=== PATIENT | female | born 1935 | race Caucasian/White ===

== ENCOUNTER 2020-01-24 09:54 | Emergency (ER) | payer MEDICARE, BC ==
[2020-01-24] MEDS ORDERED: Cefepime 2 GM in Premix Bag 1 BAG IV ONE (10:11)
[2020-01-24] MEDS ORDERED: Sodium Chloride 0.9% 1,000 ML IV ONE ×3 (10:11→11:09)
[2020-01-24] MEDS ORDERED: EPINEPHrine 1 MG/ML SDV ONE (10:20)
--- NOTE | 2020-01-24 10:46 | CR ---
Chest: Portable view of the chest was obtained. Comparison: No previous chest x-ray. Small left-sided pleural effusion is seen with hazy left lower lung density. Right lung and left upper lung are clear. Bony structures are grossly intact. Impression: 1. Small left-sided pleural effusion with hazy parenchymal density within the left lung base either due to atelectasis or minimal area of pneumonia. 2. No other acute finding is appreciated. Diagnostic code #2 This report was dictated in MDT
[2020-01-24] MEDS ORDERED: Sodium Chloride 0.9% 500 ML IV ONE (11:06)
[2020-01-24 11:08] LABS: BLOOD UREA NITROGEN,BUN 47 mg/dL (7.0-18.0); CARBON DIOXIDE,CO2 24.4 mmol/L (21.0-32.0); CHLORIDE,CL 100 mmol/L (98-107); GLUCOSE RANDOM 172 mg/dL (74-106); LIPASE 120 U/L (73-393); POTASSIUM,K 3.7 mmol/L (3.5-5.1); SODIUM,NA 138 mmol/L (136-145)
[2020-01-24] MEDS ORDERED: Aspirin 81 MG Tab.Chew PO ONE (11:12)
[2020-01-24] MEDS ORDERED: Etomidate 2 MG/ML 20 ML SDV IVPUSH ONE (11:17)
[2020-01-24] MEDS ORDERED: Amiodarone 150 MG in Dextrose 5% in Water 100 ML IV ONE ×2 (11:27)
[2020-01-24] MEDS ORDERED: Potassium Chloride Riders 20 MEQ in Premix Bag 1 BAG IV ONE ×2 (11:36→11:42)
[2020-01-24] MEDS ORDERED: Magnesium Sulfate (4.06 MEQ/ML) 5 GM/10 ML SDV IV STA (11:37)
[2020-01-24] MEDS ORDERED: Amiodarone In Dextrose,Iso-Osm 150 MG in Premix Bag 1 BAG IV ONE ×2 (11:43)
[2020-01-24] MEDS ORDERED: Magnesium Sulfate/Water 1 GM in Premix Bag 1 BAG IV ONE (12:00)
[2020-01-24] MEDS ORDERED: Enoxaparin 60 MG/0.6 ML Syringe SUBCUT ONE (12:14)
--- NOTE | 2020-01-24 12:36 | EDM.PDOC ---
ED HPI GENERAL MEDICAL PROBLEM - General Chief Complaint: Respiratory Problem Stated Complaint: COUGH Time Seen by Provider: 01/24/20 10:28 - History of Present Illness INITIAL COMMENTS - FREE TEXT/NARRATIVE: HPI 84-year-old female with no known significant medical history presents with complaint of weakness since this morning, patient found to be hypotensive and with mild hypoxemia and a new onset cough. Denies fevers, chills, diarrhea, abdominal pain, anticoagulation, unable to elaborate what medications he takes or what medical history she has. M/S/F/SocHx notable for: please see HPI; remainder reviewed with patient and in chart. ROS: Negative constitutional, eye, cardiovascular, pulmonary, GI, , MSK, skin , neurologic, psychiatric, endocrine unless noted in the HPI. Exam HR 158, RR 24, BP 47/31, T 35.6C, SaO2 94% on room air. Gen: pleasant, appears mildly confused, unwell appearing. Faint frothy sputum at mouth. Infrequent nonproductive cough observed. HEENT: NC, AT, PEERL, EOMI, neck supple, no goiter appreciated. Resp: Clear to auscultation bilaterally, normal work of breathing, no accessory muscle usage. Card: irregularly irregular rate, normal rhythm with no murmurs, rubs, or gallops, extremities cool and poorly perfused. GI: tender to palpation throughout all quadrants, no rebound, no guarding. : No suprapubic tenderness to palpation. MSK: No visible deformities, strength and tone without visually appreciable deficit. Skin: color, no visible lesions. Neuro: alert and oriented 3, however the patient appears have mild confusion, no facial asymmetry, vision and hearing WNL. Psych: Mood and affect appropriate. Labs / Imaging (pertinent): WBC 17.35, Hb 11.9, PLT 293, lymphocytes 0.5, neutrophils 88.0, PT/INR 1.1, PTT 22.5, d-dimer 0.46, Na 138, K 3.7, glucose 172, Bilirubin 0.9, Lactate (10:05 AM ) 3.4, troponin 35.8, CRP 16.90, Ferritin 461, AST 418, ALT 103, alkaline phosphatase 71, LDH 1447, lipase 120, TSH 1.84, fT4 1.55. Influenza A & B negative. UA: moderate leukocyte esterase, 3+ bacteria, few epithelial cells, negative nitrate. CXR: small left-sided pleural effusion with hazy parenchymal density within the left lung base other due to atelectasis or minimal area of pneumonia. No other acute finding is appreciated. EKG (10:03 AM): atrial fibrillation with ventricular rate of 154 bpm, ST segment elevations in the inferior and anterior lateral leads. EKG (10:24 AM): atrial fibrillation with ventricular rate of 154, reduced amplitude of ST segment elevations. MDM Previous chart, nursing note, labs, imaging, and vitals reviewed. A: 84-year-old female with no known significant medical history presents with complaint of weakness since this morning, patient found to be hypotensive and with mild hypoxemia and a new onset cough.. Evaluation: Patient meets CMS sepsis screening guidelines (temperature, heart rate, respiratory rate, leukocytosis), source as below. Infectious Source: * Pulmonary: while the one view chest x-ray has no focal infiltrate on imaging, the patient has a cough and shortness of breath along with leukocytosis raising concern for pneumonia. Patient given cefipime, no identifiable risk factors for MRSA, as such vancomycin was not initially given. There is concern for COVID-19 , testing pending, further imaging deferred to the accepting facility. * Urine: UA consistent with infection versus colonization. * Skin: Consider a cutaneous source unlikely given absence of significant infection appreciated on exam. * CRUISE COORDINATOR: Doubt given the lack of meningismus, petechia, and the overall clinical presentation. * Abdomen: Doubt given the non-tender abdomen and an alternate source. * Spine: patient without back pain, or further risk factors suggestive of a spinal infection. * Lines: Patient without indwelling lines/ports. Resuscitation: * Blood cultures, 2 L NS fluid bolus, and cefipime ordered with the initial evaluation. Due to concern for COVID-19, vancomycin was not initially ordered ( concern for renal toxicity compounded with underlying potential disease process) . No identifiable high-risk features (patient lives at home) for MRSA. * Patient noted to be in A. fib with RVR, this appears to be new in onset, ST segment elevations noted, however patient is without chest pain, unclear if this is a primary process or secondary to demand. Will plan on fluid resuscitation and repeat check of ECG. Initially considered cardioversion, however patient was fluid responsive and cardioversion for management of the patients hypotension was postponed following fluid resuscitation. Aspirin ordered. * 11:30 talked with patient son (Rey), sick since Friday with progressive weakness. Increasing difficulty breathing. Similar symptoms at [place]. * Patient verbally consented for cardioversion, immediately prior to sedation and cardioversion the patient reverts a sinus rhythm, patient frequently alternating between sinus rhythm and atrial fibrillation. DC cardioversion is not felt to be indicated given the frequent conversion to sinus rhythm, this would not likely result in sustained sinus rhythm. Amiodarone ordered along with norepinephrine gtt (anticipated due to likely hypertension from amiodarone) . Patient noted to have a potassium of 3.7, replacement ordered as well as 1 g magnesium. * 11:37 - discuss case with Dr. Sanders, the greens keeper on-call in [place]. Reviewed initial ECG together, Dr. Sanders recommended further attempts to cardioversion with repeat ECG. * Unable to obtain an EKG in sinus rhythm, patient with worsening or ongoing sustained A. fib, 8 mg etomidate given with moderate-deep sedation (document below), synchronized DC cardioversion with brief conversion to NSR (ECG with significant artifact and not obtained). * 12:13 - discuss case with Dr. Sanders, ECGs nondiagnostic, recommended addition of Lovenox 1 mg per kilogram and transfer to the ER for further evaluation. Discussed case with Dr. Harper, patient accepted in transfer. Disposition: patient transferred by fixed wing ALS. Impression: hypotension, troponin elevation, atrial fibrillation, question rey sepsis. (please reference below for remainder of encounter information) Critical Care Time Organ system(s): Cardiopulmonary, vascular, CRUISE COORDINATOR, Renal Intervention: Assessment of the patient, interpretation of studies, communication related to patient care. Time: 74 minutes were spent directly related to patient care exclusive of separately billed procedures Cardioversion Indication: hemodynamically unstable rhythm. Consent: Written. Risks and benefits including post-procedural arrhythmias, pain , electrical bell, and stroke were discussed with the patient. The patient understood and agreed to proceed with the procedure. Consent: Verbal. Risks and benefits including post-procedural arrhythmias, pain , electrical bell, and stroke were discussed with the patient. The patient understood and agreed to proceed with the procedure. Consent: Implied. Risks and benefits including post-procedural arrhythmias, pain , electrical bell, and stroke were felt to be outweighed by expected benefit and it was in the patients best interests for a cardioversion to be performed. After a time out in which the patient's identity was confirmed verbally and by their wrist band, synchronized cardioversion was performed at 75-200 J via anterior / posterior pads. A continuous 12 lead electrocardiogram demonstrated conversion from atrial fibrillation to a sinus rhythm. There were no complications and the patient tolerated the procedure well. Sedation Pre-Procedure: Consent: verbal. Risks and benefits including adverse drug reaction, pain, nausea, vomiting, the need for respiratory support, and in extremely rare instances organ damage and , were reviewed with the patient, the patient understood and consented to sedation. ASA: 2. Y airway cart Y BVM Y Suction Y SaO2, HR, BP functioning and within acceptable limits. Patient on supplemental oxygen via a nasal cannula. Y review potential complications and management plans. Procedure The patient was given a total of 8 mg of Etomidate with moderate-deep sedation achieved. There were no significant adverse events and the patient tolerated the procedure well. Total time: 15 minutes. Post-Procedure I remained at the bedside until the patient was clearing sedation, vitals signs , airway and overall clinical condition were stable. RT and nursing remained present monitoring the patient per protocol through complete clearing of sedation and I was immediately available in the department throughout. - Related Data Allergies Allergy/AdvReac Type Severity Reaction Status Date / Time lisinopril Allergy Cannot Verified 01/24/20 11:57 Remember Penicillins Allergy Nausea and Verified 06/13/14 14:12 Vomiting pneumococcal vaccine Allergy Cannot Verified 01/24/20 11:57 [From Pneumovax 23] Remember procaine [From Novocain] Allergy Cannot Verified 01/24/20 11:57 Remember simvastatin Allergy Cannot Verified 01/24/20 11:57 Remember Sulfa (Sulfonamide Allergy Nausea and Verified 06/13/14 14:12 Antibiotics) Vomiting Home Meds: Home Meds Acetaminophen [Tylenol Arthritis Pain] 650 mg PO Q8H PRN 01/24/20 [History] Ascorbic Acid [Vitamin C] 1,000 mg PO ASDIRECTED 01/24/20 [History] Calcium Citrate/Vitamin D3 [Calcium Citrate with D Tablet] 1 tab PO BID [History] Donepezil HCl 10 mg PO DAILY 01/24/20 [History] Doxazosin [Doxazosin Mesylate] 4 mg PO DAILY 01/24/20 [History] Glucosamine/D3/Boswellia [place]lin [Osteo Bi-Flex Tablet] 1 tab PO ASDIRECTED [History] Levothyroxine [Levothroid] 137 mcg PO ACBREAKFAST 01/24/20 [History] Losartan [Cozaar] 50 mg PO DAILY 01/24/20 [History] Memantine HCl [Namenda] 5 mg PO DAILY 01/24/20 [History] Multivit with Calcium,Iron,Min [One Daily Women's] 1 tab PO DAILY 01/24/20 [ History] Sertraline [Zoloft] 50 mg PO ASDIRECTED 01/24/20 [History] Verapamil HCl [Verapamil Sr] 180 mg PO DAILY 01/24/20 [History] cycloSPORINE [Restasis] 1 drop EYEBOTH ASDIRECTED 01/24/20 [History] Social & Family History - Family History Family Medical History: Unobtainable - Tobacco Use Smoking Status *Q: Unknown Ever Smoked - Recreational Drug Use Recreational Drug Use: No ED ROS GENERAL - Review of Systems Review Of Systems: See Below ED EXAM, GENERAL - Physical Exam Exam: See Below Course - Vital Signs Last Recorded V/S: Last Vital Signs Temp 36.9 C 01/24/20 11:44 Pulse 159 H 01/24/20 10:23 Resp 28 H 01/24/20 10:23 BP 105/83 01/24/20 10:23 Pulse Ox 99 01/24/20 10:23 - Orders/Labs/Meds Orders: Active Orders 24 hr Category Date Time Status Communication Order [RC] STAT Care 01/24/20 10:53 Active EKG 12 Lead [EKG Documentation Completion] [RC] STAT Care 01/24/20 10:37 Active EKG 12 Lead [EKG Documentation Completion] [RC] STAT Care 01/24/20 10:37 Active EKG 12 Lead [EKG Documentation Completion] [RC] STAT Care 01/24/20 11:18 Active CORONAVIRUS COVID-19 PCR PHL [MREF] Stat Lab 01/24/20 12:33 Ordered CULTURE BLOOD [BC] Stat Lab 01/24/20 10:05 Received CULTURE BLOOD [BC] Stat Lab 01/24/20 10:15 Results CULTURE URINE [RM] Stat Lab 01/24/20 12:32 Ordered CULTURE URINE [RM] Stat Lab 01/24/20 12:32 Ordered Amiodarone In Dextrose,Iso-Osm [Nexterone in Dextrose Med 01/24/20 11:30 Active 360 MG/200 ML] 360 mg in 200 ml IV ASDIRECTED Norepinephrine Bit/0.9 % NaCl [Norepinephr-0.9% NaCl 4 Med 01/24/20 11:30 Active mg/250] 4 mg in 250 ml IV TITRATE Norepinephrine Bit/0.9 % NaCl [Norepinephr-0.9% NaCl 4 Med 01/24/20 12:00 Active mg/250] 4 mg in 250 ml IV TITRATE Potassium Chloride Riders [KCL 20 MEQ in Water 50 ML] Med 01/24/20 11:42 Active 20 meq Premix Bag 1 bag IV ONETIME Blood Culture x2 Reflex Set [OM.PC] Stat Oth 01/24/20 10:08 Ordered Isolation [COMM] Routine Oth 01/24/20 10:10 Active Medication Orders Amiodarone HCl/Dextrose (Nexterone In Dextrose 360 Mg/200 Ml) 360 mg in 200 mls @ 33.333 mls/hr IV ASDIRECTED HANY; Protocol Last Admin: 01/24/20 12:04 Dose: 1 mg/min, 33.333 mls/hr Norepinephrine Bitartrate (Norepinephr-0.9% Nacl 4 Mg/250) 4 mg in 250 mls @ 7.5 mls/hr IV TITRATE HANY; Protocol Last Titration: 01/24/20 12:04 Dose: 4 mcg/min, 15 mls/hr Titration: 01/24/20 11:59 Dose: 3 mcg/min, 11.25 mls/hr Admin: 01/24/20 11:53 Dose: 2 mcg/min, 7.5 mls/hr Potassium Chloride 20 meq/ (Premix) 50 mls @ 25 mls/hr IV ONETIME ONE Stop: 01/24/20 13:41 Last Admin: 01/24/20 12:10 Dose: 25 mls/hr Norepinephrine Bitartrate (Norepinephr-0.9% Nacl 4 Mg/250) 4 mg in 250 mls @ 7.5 mls/hr IV TITRATE HANY; Protocol Labs: Laboratory Tests 01/24/20 01/24/20 01/24/20 Range/Units 10:05 10:05 10:05 WBC 17.35 H (4.0-11.0) K/uL RBC 3.85 L (4.30-5.90) M/uL Hgb 11.9 L (12.0-16.0) g/dL Hct 36.6 (36.0-46.0) % MCV 95.1 (80.0-98.0) fL MCH 30.9 (27.0-32.0) pg MCHC 32.5 (31.0-37.0) g/dL RDW Std Deviation 51.8 (28.0-62.0) fl RDW Coeff of Lorelei 15 (11.0-15.0) % Plt Count 293 (150-400) K/uL MPV 10.20 (7.40-12.00) fL Neut % (Auto) 88.0 H (48.0-80.0) % Lymph % (Auto) 2.9 L (16.0-40.0) % [place] % (Auto) 9.0 (0.0-15.0) % Eos % (Auto) 0.0 (0.0-7.0) % Baso % (Auto) 0.1 (0.0-1.5) % Neut # (Auto) 15.3 H (1.4-5.7) K/uL Lymph # (Auto) 0.5 L (0.6-2.4) K/uL [place] # (Auto) 1.6 H (0.0-0.8) K/uL Eos # (Auto) 0.0 (0.0-0.7) K/uL Baso # (Auto) 0.0 (0.0-0.1) K/uL Nucleated RBC % 0.0 /100WBC Nucleated RBCs # 0 K/uL INR APTT (18.6-31.3) SEC D-Dimer, Quantitative 0.46 (0.0-0.50) mg/L FEU Lactate 3.4 H* (0.20-2.00) mmol/L Sodium (136-145) mmol/L Potassium (3.5-5.1) mmol/L Chloride (98-107) mmol/L Carbon Dioxide (21.0-32.0) mmol/L BUN (7.0-18.0) mg/dL Creatinine (0.6-1.0) mg/dL Est Cr Clr Drug Dosing Estimated GFR (MDRD) ml/min Glucose (74-106) mg/dL Calcium (8.5-10.1) mg/dL Magnesium (1.8-2.4) mg/dL Ferritin (8-252) ng/mL Total Bilirubin (0.2-1.0) mg/dL AST (15-37) IU/L ALT (14-63) IU/L Alkaline Phosphatase (46-116) U/L Lactate Dehydrogenase (81-234) U/L Troponin I (0.000-0.056) ng/mL C-Reactive Protein (0.00-0.90) mg/dL Total Protein (6.4-8.2) g/dL Albumin (3.4-5.0) g/dL Globulin (2.6-4.0) g/dL Albumin/Globulin Ratio (0.9-1.6) Lipase (73-393) U/L Free T4 (0.76-1.46) ng/dL TSH 3rd Generation (0.36-3.74) uIU/mL Urine Color Urine Appearance Urine pH (5.0-8.0) Ur Specific [place] (1.001-1.035) Urine Protein (NEGATIVE) mg/dL Urine Glucose (UA) (NEGATIVE) mg/dL Urine Ketones (NEGATIVE) mg/dL Urine Occult Blood (NEGATIVE) Urine Nitrite (NEGATIVE) Urine Bilirubin (NEGATIVE) Urine Ictotest Urine Urobilinogen (<2.0) EU/dL Ur Leukocyte Esterase (NEGATIVE) Urine RBC (0-2/HPF) Urine WBC (0-5/HPF) Ur Epithelial Cells (NONE-FEW) Urine Bacteria (NEGATIVE) Urinalysis Comment 01/24/20 01/24/20 01/24/20 Range/Units 10:05 10:05 10:05 WBC (4.0-11.0) K/uL RBC (4.30-5.90) M/uL Hgb (12.0-16.0) g/dL Hct (36.0-46.0) % MCV (80.0-98.0) fL MCH (27.0-32.0) pg MCHC (31.0-37.0) g/dL RDW Std Deviation (28.0-62.0) fl RDW Coeff of Lorelei (11.0-15.0) % Plt Count (150-400) K/uL MPV (7.40-12.00) fL Neut % (Auto) (48.0-80.0) % Lymph % (Auto) (16.0-40.0) % [place] % (Auto) (0.0-15.0) % Eos % (Auto) (0.0-7.0) % Baso % (Auto) (0.0-1.5) % Neut # (Auto) (1.4-5.7) K/uL Lymph # (Auto) (0.6-2.4) K/uL [place] # (Auto) (0.0-0.8) K/uL Eos # (Auto) (0.0-0.7) K/uL Baso # (Auto) (0.0-0.1) K/uL Nucleated RBC % /100WBC Nucleated RBCs # K/uL INR 1.10 APTT 22.5 (18.6-31.3) SEC D-Dimer, Quantitative (0.0-0.50) mg/L FEU Lactate (0.20-2.00) mmol/L Sodium 138 (136-145) mmol/L Potassium 3.7 (3.5-5.1) mmol/L Chloride 100 (98-107) mmol/L Carbon Dioxide 24.4 (21.0-32.0) mmol/L BUN 47 H (7.0-18.0) mg/dL Creatinine 1.5 H (0.6-1.0) mg/dL Est Cr Clr Drug Dosing TNP Estimated GFR (MDRD) 33.0 ml/min Glucose 172 H (74-106) mg/dL Calcium 9.0 (8.5-10.1) mg/dL Magnesium (1.8-2.4) mg/dL Ferritin 461 H (8-252) ng/mL Total Bilirubin 0.9 (0.2-1.0) mg/dL AST 418 H (15-37) IU/L ALT 103 H (14-63) IU/L Alkaline Phosphatase 71 (46-116) U/L Lactate Dehydrogenase 1447 H (81-234) U/L Troponin I 35.764 H* (0.000-0.056) ng/mL C-Reactive Protein 16.90 H (0.00-0.90) mg/dL Total Protein 7.1 (6.4-8.2) g/dL Albumin 3.1 L (3.4-5.0) g/dL Globulin 4.0 (2.6-4.0) g/dL Albumin/Globulin Ratio 0.8 L (0.9-1.6) Lipase 120 (73-393) U/L Free T4 1.55 H (0.76-1.46) ng/dL TSH 3rd Generation 1.84 (0.36-3.74) uIU/mL Urine Color Urine Appearance Urine pH (5.0-8.0) Ur Specific [place] (1.001-1.035) Urine Protein (NEGATIVE) mg/dL Urine Glucose (UA) (NEGATIVE) mg/dL Urine Ketones (NEGATIVE) mg/dL Urine Occult Blood (NEGATIVE) Urine Nitrite (NEGATIVE) Urine Bilirubin (NEGATIVE) Urine Ictotest Urine Urobilinogen (<2.0) EU/dL Ur Leukocyte Esterase (NEGATIVE) Urine RBC (0-2/HPF) Urine WBC (0-5/HPF) Ur Epithelial Cells (NONE-FEW) Urine Bacteria (NEGATIVE) Urinalysis Comment 01/24/20 01/24/20 Range/Units 11:29 12:05 WBC (4.0-11.0) K/uL RBC (4.30-5.90) M/uL Hgb (12.0-16.0) g/dL Hct (36.0-46.0) % MCV (80.0-98.0) fL MCH (27.0-32.0) pg MCHC (31.0-37.0) g/dL RDW Std Deviation (28.0-62.0) fl RDW Coeff of Lorelei (11.0-15.0) % Plt Count (150-400) K/uL MPV (7.40-12.00) fL Neut % (Auto) (48.0-80.0) % Lymph % (Auto) (16.0-40.0) % [place] % (Auto) (0.0-15.0) % Eos % (Auto) (0.0-7.0) % Baso % (Auto) (0.0-1.5) % Neut # (Auto) (1.4-5.7) K/uL Lymph # (Auto) (0.6-2.4) K/uL [place] # (Auto) (0.0-0.8) K/uL Eos # (Auto) (0.0-0.7) K/uL Baso # (Auto) (0.0-0.1) K/uL Nucleated RBC % /100WBC Nucleated RBCs # K/uL INR APTT (18.6-31.3) SEC D-Dimer, Quantitative (0.0-0.50) mg/L FEU Lactate (0.20-2.00) mmol/L Sodium (136-145) mmol/L Potassium (3.5-5.1) mmol/L Chloride (98-107) mmol/L Carbon Dioxide (21.0-32.0) mmol/L BUN (7.0-18.0) mg/dL Creatinine (0.6-1.0) mg/dL Est Cr Clr Drug Dosing Estimated GFR (MDRD) ml/min Glucose (74-106) mg/dL Calcium (8.5-10.1) mg/dL Magnesium 2.3 (1.8-2.4) mg/dL Ferritin (8-252) ng/mL Total Bilirubin (0.2-1.0) mg/dL AST (15-37) IU/L ALT (14-63) IU/L Alkaline Phosphatase (46-116) U/L Lactate Dehydrogenase (81-234) U/L Troponin I (0.000-0.056) ng/mL C-Reactive Protein (0.00-0.90) mg/dL Total Protein (6.4-8.2) g/dL Albumin (3.4-5.0) g/dL Globulin (2.6-4.0) g/dL Albumin/Globulin Ratio (0.9-1.6) Lipase (73-393) U/L Free T4 (0.76-1.46) ng/dL TSH 3rd Generation (0.36-3.74) uIU/mL Urine Color DARK YELLOW Urine Appearance SLT CLOUDY Urine pH 5.5 (5.0-8.0) Ur Specific [place] >= 1.030 (1.001-1.035) Urine Protein 100 H (NEGATIVE) mg/dL Urine Glucose (UA) NEGATIVE (NEGATIVE) mg/dL Urine Ketones TRACE H (NEGATIVE) mg/dL Urine Occult Blood TRACE-INTACT H (NEGATIVE) Urine Nitrite NEGATIVE (NEGATIVE) Urine Bilirubin MODERATE H (NEGATIVE) Urine Ictotest NEGATIVE Urine Urobilinogen 1.0 (<2.0) EU/dL Ur Leukocyte Esterase MODERATE H (NEGATIVE) Urine RBC 1-4 (0-2/HPF) Urine WBC 50-60 (0-5/HPF) Ur Epithelial Cells FEW (NONE-FEW) Urine Bacteria 3+ H (NEGATIVE) Urinalysis Comment Meds: Medications Generic Name Dose Route Start Last Admin Trade Name Freq PRN Reason Stop Dose Admin Amiodarone HCl/Dextrose 360 mg in 200 mls @ 33.333 mls/hr 01/24/20 11:30 04/08 12:04 Nexterone In Dextrose 360 Mg/200 Ml IV 1 mg/min ASDIRECTED HANY 33.333 mls/hr Administration Protocol 1 MG/MIN Norepinephrine Bitartrate 4 mg in 250 mls @ 7.5 mls/hr 01/24/20 11:30 12:04 Norepinephr-0.9% Nacl 4 Mg/250 IV 4 mcg/min TITRATE HANY 15 mls/hr Titration Protocol 2 MCG/MIN Potassium Chloride 20 meq/ 50 mls @ 25 mls/hr 01/24/20 11:42 01/24/20 12:10 Premix IV 01/24/20 13:41 25 mls/hr ONETIME ONE Administration Norepinephrine Bitartrate 4 mg in 250 mls @ 7.5 mls/hr 01/24/20 12:00 Norepinephr-0.9% Nacl 4 Mg/250 IV TITRATE HANY Protocol 2 MCG/MIN Discontinued Medications Generic Name Dose Route Start Last Admin Trade Name Freq PRN Reason Stop Dose Admin Aspirin 324 mg 01/24/20 11:12 01/24/20 11:21 Aspirin PO 01/24/20 11:13 324 mg ONETIME ONE Administration Enoxaparin Sodium 70 mg 01/24/20 12:14 Lovenox SUBCUT 01/24/20 12:15 ONETIME ONE Epinephrine HCl Confirm 01/24/20 10:20 01/24/20 10:58 Adrenalin Administered 01/24/20 10:21 Not Given Dose 1 mg .ROUTE .STK-MED ONE Etomidate 8 mg 01/24/20 11:17 01/24/20 11:22 Amidate IVPUSH 01/24/20 11:18 8 mg ONETIME ONE Administration Cefepime HCl 2 gm/ Premix 50 mls @ 100 mls/hr 01/24/20 10:11 01/24/20 10:45 IV 01/24/20 10:40 100 mls/hr ONETIME ONE Administration Sodium Chloride 1,000 mls @ 1,000 mls/hr 01/24/20 10:11 01/24/20 09:58 Normal Saline IV 01/24/20 11:10 1,000 mls/hr .Bolus ONE Administration Norepinephrine Bitartrate Confirm 01/24/20 10:21 01/24/20 12:13 Norepinephr-0.9% Nacl 4 Mg/250 Administered 01/24/20 10:22 Not Given Dose 4 mg in 250 mls @ as directed IV .STK-MED ONE Sodium Chloride 1,000 mls @ 1,000 mls/hr 01/24/20 10:29 01/24/20 10:21 Normal Saline IV 01/24/20 11:28 1,000 mls/hr .Bolus ONE Administration Sodium Chloride 500 mls @ 1,000 mls/hr 01/24/20 11:06 01/24/20 11:09 Normal Saline IV 01/24/20 11:35 1,000 mls/hr .Bolus ONE Administration Sodium Chloride 1,000 mls @ 999 mls/hr 01/24/20 11:09 01/24/20 11:11 Normal Saline IV 01/24/20 12:09 Not Given .Bolus ONE Amiodarone HCl 150 mg/ 103 mls @ 600 mls/hr 01/24/20 11:27 01/24/20 11:44 Dextrose/Water IV 01/24/20 11:37 Not Given .BOLUS ONE Amiodarone HCl/Dextrose Confirm 01/24/20 11:33 01/24/20 11:45 Nexterone In Dextrose 150 Mg/100 Ml Administered 01/24/20 11:34 Not Given Dose 100 mls @ as directed IV .STK-MED ONE Potassium Chloride 20 meq/ 50 mls @ 25 mls/hr 01/24/20 11:36 01/24/20 12:14 Premix IV 01/24/20 13:35 Not Given ONETIME ONE Amiodarone HCl/Dextrose Confirm 01/24/20 11:40 01/24/20 11:45 Nexterone In Dextrose 150 Mg/100 Ml Administered 01/24/20 11:41 Not Given Dose 100 mls @ as directed IV .STK-MED ONE Amiodarone HCl/Dextrose 150 mg 100 mls @ 400 mls/hr 01/24/20 11:43 01/24/20 11:45 / Premix IV 01/24/20 11:57 400 mls/hr NOW ONE Administration Protocol Amiodarone HCl/Dextrose Confirm 01/24/20 11:43 01/24/20 11:46 Nexterone In Dextrose 360 Mg/200 Ml Administered 01/24/20 11:44 Not Given Dose 360 mg in 200 mls @ as directed .ROUTE .STK-MED ONE Magnesium Sulfate 1 gm/ Premix 25 mls @ 50 mls/hr 01/24/20 12:00 IV 01/24/20 12:29 ONETIME ONE Departure - Departure Time of Disposition: 12:36 Disposition: DC/Tfer to [facility] Clinical Impression: Sepsis - Discharge Information Referrals: PCP,None [Primary Care Provider] - Sepsis Event Note - Evaluation Sepsis Screening Result: Severe Sepsis Risk - Focused Exam Vital Signs: Vital Signs Temp Temp Pulse Resp BP Pulse Ox 01/24/20 11:44 36.9 C 01/24/20 10:23 159 H 28 H 105/83 99 01/24/20 10:18 148 H 26 H 105/80 95 01/24/20 10:01 144 H 26 H 62/41 L 94 L 01/24/20 09:54 35.6 C L 158 H 24 H 47/31 L 94 L Date Exam was Performed: 01/24/20 Time Exam was Performed: 12:35 - My Orders Last 24 Hours: My Active Orders 01/24/20 10:05 CULTURE BLOOD [BC] Stat 01/24/20 10:08 Blood Culture x2 Reflex Set [OM.PC] Stat 01/24/20 10:10 Isolation [COMM] Routine 01/24/20 10:15 CULTURE BLOOD [BC] Stat 01/24/20 10:37 EKG 12 Lead [EKG Documentation Completion] [RC] STAT EKG 12 Lead [EKG Documentation Completion] [RC] STAT 01/24/20 10:53 Communication Order [RC] STAT 01/24/20 11:18 EKG 12 Lead [EKG Documentation Completion] [RC] STAT 01/24/20 11:30 Amiodarone In Dextrose,Iso-Osm [Nexterone in Dextrose 360 MG/200 ML] 360 mg in 200 ml IV ASDIRECTED Norepinephrine Bit/0.9 % NaCl [Norepinephr-0.9% NaCl 4 mg/250] 4 mg in 250 ml IV TITRATE 01/24/20 11:42 Potassium Chloride Riders [KCL 20 MEQ in Water 50 ML] 20 meq Premix Bag 1 bag IV ONETIME 01/24/20 12:00 Norepinephrine Bit/0.9 % NaCl [Norepinephr-0.9% NaCl 4 mg/250] 4 mg in 250 ml IV TITRATE 01/24/20 12:32 CULTURE URINE [RM] Stat CULTURE URINE [RM] Stat 01/24/20 12:33 CORONAVIRUS COVID-19 PCR PHL [MREF] Stat - Assessment/Plan Last 24 Hours: My Active Orders 01/24/20 10:05 CULTURE BLOOD [BC] Stat 01/24/20 10:08 Blood Culture x2 Reflex Set [OM.PC] Stat 01/24/20 10:10 Isolation [COMM] Routine 01/24/20 10:15 CULTURE BLOOD [BC] Stat 01/24/20 10:37 EKG 12 Lead [EKG Documentation Completion] [RC] STAT EKG 12 Lead [EKG Documentation Completion] [RC] STAT 01/24/20 10:53 Communication Order [RC] STAT 01/24/20 11:18 EKG 12 Lead [EKG Documentation Completion] [RC] STAT 01/24/20 11:30 Amiodarone In Dextrose,Iso-Osm [Nexterone in Dextrose 360 MG/200 ML] 360 mg in 200 ml IV ASDIRECTED Norepinephrine Bit/0.9 % NaCl [Norepinephr-0.9% NaCl 4 mg/250] 4 mg in 250 ml IV TITRATE 01/24/20 11:42 Potassium Chloride Riders [KCL 20 MEQ in Water 50 ML] 20 meq Premix Bag 1 bag IV ONETIME 01/24/20 12:00 Norepinephrine Bit/0.9 % NaCl [Norepinephr-0.9% NaCl 4 mg/250] 4 mg in 250 ml IV TITRATE 01/24/20 12:32 CULTURE URINE [RM] Stat CULTURE URINE [RM] Stat 01/24/20 12:33 CORONAVIRUS COVID-19 PCR PHL [MREF] Stat
== END 2020-01-24 12:55 ==
LOC: MW.ED 09:54
DX: A41.9 Sepsis, unspecified organism (principal); I10 Essential (primary) hypertension; R74.8 Abnormal levels of other serum enzymes; I48.91 Unspecified atrial fibrillation; Z79.899 Other long term (current) drug therapy; Z88.8 Allergy status to other drugs, medicaments and biological substances; Z88.0 Allergy status to penicillin
CPT/HCPCS: 36415; 51702; 71045; 80053; 81001; 82728; 83605; 83615; 83690; 83735; 84439; 84443; 84484; 85025; 85379; 85610; 85730; 86140; 87040; 87086; 87088; 87186; 87804; 92960; 93005; 96365; 96367; 96368; 96372; 96376; 99152; 99291; A9270; J0282; J0692; J1650; J3480; J3490; J7030; U0002